=== PATIENT | male | born 1980 | race Caucasian/White ===

== ENCOUNTER 2019-02-04 05:25 | Emergency (ER) | payer OTHER, BC ==
[2019-02-04 05:36] VITALS: BP 137/82; PULSE 91
--- NOTE | 2019-02-04 05:47 | EDM.PDOC ---
ED HPI GENERAL MEDICAL PROBLEM - General Chief Complaint: Lower Extremity Injury/Pain Stated Complaint: RT ANKLE HURTS Time Seen by Provider: 02/04/19 05:38 Source of Information: Reports: Patient History Limitations: Reports: No Limitations - History of Present Illness INITIAL COMMENTS - FREE TEXT/NARRATIVE: History of present illness: []Patient was at work when he stepped on a rock and twisted his right ankle approximately 2 hours ago. He has pain over his lateral ankle and states he could feel it swelling. Review of systems: As per history of present illness and below otherwise all systems reviewed and negative. Past medical history: As per history of present illness and as reviewed below otherwise noncontributory. Surgical history: As per history of present illness and as reviewed below otherwise noncontributory. Social history: No reported history of drug or alcohol abuse. Family history: As per history of present illness and as reviewed below otherwise noncontributory. Physical exam: General: Well developed, well nourished in NAD HEENT: Atraumatic, normocephalic, pupils reactive, negative for conjunctival pallor or scleral icterus, mucous membranes moist, throat clear, neck supple, nontender, trachea midline. Lungs: Clear to auscultation, breath sounds equal bilaterally, chest nontender. Heart: S1S2, regular, negative for clicks, rubs, or JVD. Abdomen: NABS, Soft, nondistended, nontender. Negative for masses or hepatosplenomegaly. Negative for costovertebral tenderness. Pelvis: Stable nontender. Genitourinary: Deferred. Rectal: Deferred. Extremities: Swelling and tenderness over lateral malleolus, distal pulses are intact, negative for cords or calf pain. Neurovascular unremarkable. Neuro: Awake, alert, oriented. Cranial nerves II through XII unremarkable. Cerebellum unremarkable. Motor and sensory unremarkable throughout. Exam nonfocal. Skin:warm and dry Diagnostics: X-ray right ankle, right foot-neg for fx Therapeutics: Declined pain meds ED Course: Stable Impression: right ankle sprain Prescriptions: diclofenac Plan: Ice, elevate, wear splint for support and ibuprofen as directed for pain, follow up with your primary care physician, return to ER if symptoms worsen or change. Definitive disposition and diagnosis as appropriate pending reevaluation and review of above. Left Ankle Pain Score (Numeric/FACES): 8 - Related Data Allergies Allergy/AdvReac Type Severity Reaction Status Date / Time No Known Allergies Allergy Verified 02/04/19 05:33 Home Meds: Home Meds ARIPiprazole [Abilify] 5 mg PO DAILY 02/04/19 [History] Diclofenac Sodium [Voltaren] 75 mg PO BIDMEALS PRN #20 tab.cr 02/04/19 [Rx] Escitalopram Oxalate 20 mg PO DAILY 02/04/19 [History] buPROPion [Wellbutrin SR] 300 mg PO DAILY 02/04/19 [History] Past Medical History HEENT History: Reports: None Cardiovascular History: Reports: None Respiratory History: Reports: None Other Respiratory History: hx of smoking 1pack/day for 10 years Gastrointestinal History: Reports: Cholelithiasis, GERD Genitourinary History: Reports: None Musculoskeletal History: Reports: Gout Other Musculoskeletal History: hx of gout in right great toe Neurological History: Reports: None Psychiatric History: Reports: Anxiety Endocrine/Metabolic History: Reports: None Hematologic History: Reports: None Immunologic History: Reports: None Oncologic (Cancer) History: Reports: None Dermatologic History: Reports: None - Infectious Disease History Infectious Disease History: Reports: None - Past Surgical History Head Surgeries/Procedures: Reports: None HEENT Surgical History: Reports: Tonsillectomy Cardiovascular Surgical History: Reports: None Respiratory Surgical History: Reports: None GI Surgical History: Reports: None Male Surgical History: Reports: None Endocrine Surgical History: Reports: None Neurological Surgical History: Reports: None Musculoskeletal Surgical History: Reports: None Oncologic Surgical History: Reports: None Dermatological Surgical History: Reports: None Social & Family History - Family History HEENT: Reports: None Cardiac: Reports: Other (See Below) Other Cardiac Family History: Heart disease Respiratory: Reports: None GI: Reports: None : Reports: None OBGYN: Reports: None Musculoskeletal: Reports: None Neurological: Reports: None Psychiatric: Reports: None Endocrine/Metabolic: Reports: None Hematologic: Reports: None Immunologic: Reports: None Dermatologic: Reports: None Oncologic: Reports: None Review of Systems - Review of Systems Review Of Systems: See Below ED EXAM, GENERAL - Physical Exam Exam: See Below (See history of present illness) Course - Vital Signs Last Recorded V/S: Last Vital Signs Temp Pulse 91 02/04/19 05:27 Resp 18 02/04/19 05:27 BP 137/82 02/04/19 05:27 Pulse Ox 94 L 02/04/19 05:27 - Orders/Labs/Meds Meds: Medications Discontinued Medications Generic Name Dose Route Start Last Admin Trade Name Carolann PRN Reason Stop Dose Admin Ibuprofen 800 mg 02/04/19 06:29 02/04/19 06:33 Motrin PO 02/04/19 06:30 800 mg ONETIME ONE Administration Departure - Departure Time of Disposition: 06:21 Disposition: Home, Self-Care 01 Condition: Good Clinical Impression: Right ankle sprain Qualifiers: Encounter type: initial encounter Involved ligament of ankle: unspecified ligament Qualified Code(s): S93.401A - Sprain of unspecified ligament of right ankle, initial encounter - Discharge Information *PRESCRIPTION DRUG MONITORING PROGRAM REVIEWED*: No *COPY OF PRESCRIPTION DRUG MONITORING REPORT IN PATIENT ANN: No Prescriptions: Diclofenac Sodium [Voltaren] 75 mg PO BIDMEALS PRN #20 tab.cr PRN Reason: Pain Instructions: Ankle Sprain Referrals: PCP,None [Primary Care Provider] - Forms: ED Department Discharge Additional Instructions: The following information is given to patients seen in the emergency department who are being discharged to home. This information is to outline your options for follow-up care. We provide all patients seen in our emergency department with a follow-up referral. The need for follow-up, as well as the timing and circumstances, are variable depending upon the specifics of your emergency department visit. If you don't have a primary care physician on staff, we will provide you with a referral. We always advise you to contact your personal physician following an emergency department visit to inform them of the circumstance of the visit and for follow-up with them and/or the need for any referrals to a consulting specialist. The emergency department will also refer you to a specialist when appropriate. This referral assures that you have the opportunity for follow-up care with a specialist. All of these measure are taken in an effort to provide you with optimal care, which includes your follow-up. Under all circumstances we always encourage you to contact your private physician who remains a resource for coordinating your care. When calling for follow-up care, please make the office aware that this follow-up is from your recent emergency room visit. If for any reason you are refused follow-up, please contact the [facility] Emergency Department at and asked to speak to the emergency department charge nurse. Ice, elevate, wear splint for support and ibuprofen as directed for pain, follow up with your primary care physician, return to ER if symptoms worsen or change. [facility] [place] [phone]
--- NOTE | 2019-02-04 06:16 | CR ---
INDICATION: Trauma. Pain. TECHNIQUE: Three views of the left foot. FINDINGS: No fracture or dislocation. No erosion or intrinsic skeletal lesion. IMPRESSION : Negative left foot. Dictated by Ronald Pro MD @ Feb 04 2019 6:13AM Signed by Dr. Ronald Pro @ Feb 04 2019 6:14AM
--- NOTE | 2019-02-04 06:18 | CR ---
INDICATION: Trauma. Pain. TECHNIQUE: Three views of the left ankle. FINDINGS: L fracture, dislocation, or erosion. Slight soft tissue swelling laterally. IMPRESSION: Slight soft tissue swelling. The left ankle is otherwise negative. Dictated by Ronald Pro MD @ Feb 04 2019 6:15AM Signed by Dr. Ronald Pro @ Feb 04 2019 6:15AM
[2019-02-04] MEDS ORDERED: Ibuprofen 800 MG Tab PO ONE (06:29)
== END 2019-02-04 06:40 | disposition home or self-care (01) ==
LOC: MW.ED 05:25
DX: S93.401A Sprain of unspecified ligament of right ankle, initial encounter (principal); F41.9 Anxiety disorder, unspecified; Z87.891 Personal history of nicotine dependence; Z79.899 Other long term (current) drug therapy; W22.8XXA Striking against or struck by other objects, initial encounter; X50.1XXA Overexertion from prolonged static or awkward postures, initial encounter; Y99.0 Civilian activity done for income or pay
CPT/HCPCS: 73610; 73630; 99283; A9270

== ENCOUNTER 2020-08-13 08:45 | Day surgery (SDC) | payer BC ==
[~2020-08-13 08:45] MED LIST: Lactated Ringers 1,000 ML IV SCH; Midazolam 1 MG/ML 2 ML SDV ONE; Propofol 200 MG/20 ML SDV ONE
--- NOTE | 2020-08-13 09:23 | PCM.PREANE ---
Preanesthetic Assessment - Anesthesia/Transfusion/Family Hx Anesthesia History: Prior Anesthesia Without Reaction Family History of Anesthesia Reaction: No Transfusion History: No Prior Transfusion(s) - Review of Systems General: No Symptoms Pulmonary: No Symptoms Cardiovascular: No Symptoms Gastrointestinal: No Symptoms Neurological: No Symptoms Other: Reports: None - Physical Assessment NPO Status Date: 08/13/20 NPO Status Time: 00:05 Height: 5 ft 11 in Weight: 281 lb ASA Class: 2 Mental Status: Alert & Oriented x3 Dentition: Reports: Normal Dentition ROM/Head Extension: Full Lungs: Clear to Auscultation, Normal Respiratory Effort Cardiovascular: Regular Rate, Regular Rhythm - Allergies Allergies/Adverse Reactions: Allergies Allergy/AdvReac Type Severity Reaction Status Date / Time No Known Allergies Allergy Verified 08/09/20 10:10 - Anesthesia Plan Pre-Op Medication Ordered: None - Acknowledgements Anesthesia Type Planned: General Anesthesia Pt an Appropriate Candidate for the Planned Anesthesia: Yes Alternatives and Risks of Anesthesia Discussed w Pt/Guardian: Yes Pt/Guardian Understands and Agrees with Anesthesia Plan: Yes Additional Comments: npo gout no cv problems tob none etoh rare hx depression par no questions obese PreAnesthesia Questionnaire HEENT History: Reports: None Cardiovascular History: Reports: None Respiratory History: Reports: None Other Respiratory History: hx of smoking 1pack/day for 10 years Gastrointestinal History: Reports: Cholelithiasis, Chronic Diarrhea, GERD Genitourinary History: Reports: None Musculoskeletal History: Reports: Fracture, Gout, Neck Pain, Chronic Other Musculoskeletal History: hx of gout in right great toe, hx of fx foot as a teenager Neurological History: Reports: Concussion, Head Trauma Psychiatric History: Reports: Anxiety, Depression, PTSD Endocrine/Metabolic History: Reports: Obesity/BMI 30+ Hematologic History: Reports: None Immunologic History: Reports: None Oncologic (Cancer) History: Reports: None Dermatologic History: Reports: None - Infectious Disease History Infectious Disease History: Reports: None - Past Surgical History Head Surgeries/Procedures: Reports: None HEENT Surgical History: Reports: Tonsillectomy Cardiovascular Surgical History: Reports: None Respiratory Surgical History: Reports: None GI Surgical History: Reports: None, Appendectomy, Cholecystectomy Male Surgical History: Reports: None Endocrine Surgical History: Reports: None Neurological Surgical History: Reports: None Musculoskeletal Surgical History: Reports: Other (See Below) Other Musculoskeletal Surgeries/Procedures:: ACL repair right knee (? screw) Oncologic Surgical History: Reports: None Dermatological Surgical History: Reports: None - SUBSTANCE USE Tobacco Use Status *Q: Current Every Day Tobacco User Tobacco Use Within Last Twelve Months: Vaping Recreational Drug Use History: No - HOME MEDS Home Medications: Home Meds Escitalopram Oxalate 30 mg PO DAILY 02/04/19 [History] buPROPion [Wellbutrin SR] 150 mg PO DAILY 02/04/19 [History] - CURRENT (IN HOUSE) MEDS Current Meds: Current Medications Lactated Ringer's (Ringers, Lactated) 1,000 mls @ 125 mls/hr IV ASDIRECTED NANCY Discontinued Medications Midazolam HCl (Midazolam 1 Mg/Ml 2 Ml Sdv) Confirm Administered Dose 2 mg .ROUTE .STK-MED ONE Stop: 08/13/20 07:19 Propofol (Propofol 200 Mg/20 Ml Sdv) Confirm Administered Dose 600 mg .ROUTE .STK-MED ONE Stop: 08/13/20 07:19
--- NOTE | 2020-08-13 10:07 | PCM.OPNOTE ---
- General Post-Op/Procedure Note Date of Surgery/Procedure: 08/13/20 Operative Procedure(s): Colonoscopy with random biopsies from the cecum, transverse colon, sigmoid colon and rectum. Pre Op Diagnosis: Chronic diarrhea. Abdominal pain. Rectal bleeding. Post-Op Diagnosis: No acute inflammatory changes. Anesthesia Technique: MAC (ASA II) Primary Surgeon: Favian Wilson Heavy Media Operator: Anel Fontaine Condition: Good Free Text/Narrative:: DICTATION [id number] CPT CODE 62278
[2020-08-13] MEDS ORDERED: Lactated Ringers 1,000 ML IV SCH (10:15)
--- NOTE | 2020-08-13 10:25 | PCM.POSTAN ---
POST ANESTHESIA ASSESSMENT - MENTAL STATUS Mental Status: Alert (no problems), Oriented - VITAL SIGNS Vital Signs: Last Vital Signs Temp 97.0 F 08/13/20 09:07 Pulse 86 08/13/20 10:19 Resp 11 L 08/13/20 10:19 BP 122/88 08/13/20 10:19 Pulse Ox 95 08/13/20 10:19 - RESPIRATORY Respiratory Status: Respiratory Rate WNL, Airway Patent, O2 Saturation Stable - CARDIOVASCULAR CV Status: Pulse Rate WNL, Blood Pressure Stable - GASTROINTESTINAL GI Status: No Symptoms - POST OP HYDRATION Hydration Status: Adequate & Stable
[2020-08-13 10:34] VITALS: BP 122/76; PULSE 89
--- NOTE | 2020-08-13 10:40 | PCM48HPAN ---
Post Anesthesia Note - EVALUATION WITHIN 48HRS OF ANESTHETIC Vital Signs in Normal Range: Yes Patient Participated in Evaluation: Yes Respiratory Function Stable: Yes Airway Patent: Yes Cardiovascular Function Stable: Yes Hydration Status Stable: Yes Pain Control Satisfactory: Yes Nausea and Vomiting Control Satisfactory: Yes Mental Status Recovered: Yes Vital Signs: Last Vital Signs Temp 96.8 F L 08/13/20 10:25 Pulse 89 08/13/20 10:25 Resp 15 08/13/20 10:25 BP 122/76 08/13/20 10:25 Pulse Ox 93 L 08/13/20 10:25
--- NOTE | 2020-08-13 13:10 | OR ---
SURGEON: Favian Wilson M.D. DATE OF PROCEDURE: 08/13/2020 OPERATION PERFORMED: Colonoscopy with random biopsies from the cecum, transverse colon, sigmoid colon, and rectum. PRIMARY SURGEON: Favian Wilson M.D. 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 ANESTHESIA: MAC. ASA CLASSIFICATION: II. PREOPERATIVE DIAGNOSES: 1. Progressive diarrhea with rectal bleeding. Negative infectious disease workup. 2. Abdominal pain. POSTOPERATIVE DIAGNOSIS: Possible nonspecific colitis. DESCRIPTION OF PROCEDURE: The patient was taken to the endoscopy room and positioned on the endoscopy table in the left lateral decubitus position. Time-out was called for appropriate identification of the patient and procedure. Monitored anesthesia care was provided. The colonoscope was inserted into the rectum and advanced with minimal difficulty to the cecum where the colonoscope was retroflexed to visualize the ascending colon from below. The colonoscope was then straightened and slowly withdrawn. Given his history, random biopsies were obtained as the scope was withdrawn. The initial biopsies were obtained from the cecum. The colonoscope was withdrawn to the proximal transverse colon where another set of biopsies were obtained. I did not see any evidence of an acute colitis. The remainder of the transverse colon, splenic flexure, and descending colon again showed no tumors, polyps, diverticula, or angiodysplastic changes. Random biopsies from the sigmoid colon were also obtained to rule out a nonspecific or microscopic colitis. Once the colonoscope was withdrawn to the rectum, again biopsies of this area were taken. The colonoscope was retroflexed to visualize the anal orifice from above. No tumors or polyps were seen. There were some chronic hemorrhoidal changes but no acute bleeding. The colonoscope was then straightened, the rectum aspirated, and the colonoscope removed. The patient tolerated the procedure well and was taken to recovery room in satisfactory condition. FROILAN / KENJI /[id number]
== END 2020-08-13 10:45 | disposition home or self-care (01) ==
LOC: MW.SDS 08:45
PROVIDERS: ATTEND Surgery
DX: K52.9 Noninfective gastroenteritis and colitis, unspecified (principal); K62.5 Hemorrhage of anus and rectum; K63.89 Other specified diseases of intestine; K64.9 Unspecified hemorrhoids; F17.210 Nicotine dependence, cigarettes, uncomplicated; M10.9 Gout, unspecified; E66.9 Obesity, unspecified; Z68.39 Body mass index [BMI] 39.0-39.9, adult; Z98.890 Other specified postprocedural states
CPT/HCPCS: 45380; J2250; J2704; J7120; 00811; 88305

== ENCOUNTER 2022-01-16 16:57 | Emergency (ER) | payer BC ==
[2022-01-16] MEDS ORDERED: Morphine 4 MG/ML VIAL IVPUSH ONE (18:04)
[2022-01-16] MEDS ORDERED: LORazepam 2 MG/ML Syringe IVPUSH STA (18:04)
[2022-01-16] MEDS ORDERED: LORazepam 2 MG/ML SDV IVPUSH ONE (18:18)
[2022-01-16] MEDS ORDERED: HYDROmorphone 1 MG/ML Syringe IVPUSH ONE (19:29)
[2022-01-16 20:19] LABS: CARBON DIOXIDE,CO2 27.3 mmol/L (21.0-32.0); POTASSIUM,K 3.8 mmol/L (3.5-5.1)
[2022-01-16] MEDS ORDERED: Iopamidol 755 MG/ML 500 ML Multipack Bottle IVPUSH STA (21:40)
[2022-01-16] MEDS ORDERED: Ibuprofen 400 MG Tab PO ONE (22:30)
[2022-01-16] MEDS ORDERED: Acetaminophen 325 MG Tab PO ONE (22:30)
[2022-01-16] MEDS ORDERED: Cyclobenzaprine 10 MG Tab PO ONE (22:31)
[2022-01-16] MEDS ORDERED: oxyCODONE 5 MG Tab PO ONE (23:19)
[2022-01-16 23:49] VITALS: BP 107/66; PULSE 97
== END 2022-01-16 23:57 | disposition home or self-care (01) ==
LOC: MW.ED 16:57
DX: S22.080A Wedge compression fracture of T11-T12 vertebra, initial encounter for closed fracture (principal); K21.9 Gastro-esophageal reflux disease without esophagitis; M10.9 Gout, unspecified; E66.9 Obesity, unspecified; Z68.41 Body mass index [BMI] 40.0-44.9, adult; Z20.822 Contact with and (suspected) exposure to COVID-19; Z87.891 Personal history of nicotine dependence; W18.09XA Striking against other object with subsequent fall, initial encounter
CPT/HCPCS: 36415; 71260; 72125; 72128; 72131; 74177; 80053; 85027; 87635; 96374; 96375; 99284; A9270; J1170; J2060; J2270; Q9967; U0002